=== PATIENT | female | born 1995 | race African-American/Black ===

== ENCOUNTER 2017-11-01 15:46 | Emergency (ER) | payer MEDICAID, OTHER ==
[~2017-11-01] VITALS: Ht 170.2 cm; Wt 85.0 kg
[2017-11-01 15:52] VITALS: BP 124/72; PULSE 75; RESP 18; TEMP 97.7; O2SAT 100
[2017-11-01] MEDS ORDERED: SODIUM CHLOR 0.9% 1000 ML INJ 1,000 ML IV SCH (16:28)
--- NOTE | 2017-11-01 16:45 | PD ---
HPI Chief Complaint: Related Problem Time Seen by Provider: 16:21 Travel History International Travel<30 days: No Contact w/Intl Traveler<30days: No Traveled to known affect area: No History of Present Illness HPI 21-year-old who estimated gestational age 10 weeks based on an ultrasound performed 2 weeks ago at a woman[facility] in [place]. She presents complaining of fatigue. She reports that for the last 1.5 weeks she has had fatigue and nausea. Symptoms are moderate, no aggravating or relieving factors. Denies abdominal pain, vomiting, chest pain, shortness of breath, cough or congestion, vaginal bleeding or discharge, dysuria. 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 No other complaints. PFSH Past Medical History ?: LMP: 08/17/17 Social History Alcohol Use: No Tobacco Use: No Substance Use: No Allergies-Medications (Allergen,Severity, Reaction): Coded Allergies: No Known Allergies (Unverified , 10/31/14) Reported Meds & Prescriptions Reported Meds & Active Scripts Active Diclegis (Doxylamine-Pyridoxine) 10-10 Mg Tab 2 Tab PO AT NIGHT Review of Systems Except as stated in HPI: all other systems reviewed are Neg Physical Exam Narrative GENERAL: Well-developed well-nourished female no acute distress SKIN: Warm and dry. HEAD: Atraumatic. Normocephalic. EYES: Pupils equal and round. No scleral icterus. No injection or drainage. ENT: No nasal bleeding or discharge. Mucous membranes pink and moist. NECK: Trachea midline. No JVD. CARDIOVASCULAR: Regular rate and rhythm. No murmur appreciated. RESPIRATORY: No accessory muscle use. Clear to auscultation. Breath sounds equal bilaterally. GASTROINTESTINAL: Abdomen soft, non-tender, nondistended. Hepatic and splenic margins not palpable. MUSCULOSKELETAL: No obvious deformities. No clubbing. No cyanosis. No edema. NEUROLOGICAL: Awake and alert. No obvious cranial nerve deficits. Motor grossly within normal limits. Normal speech. Data Data Last Documented VS Vital Signs Date Time Temp Pulse Resp B/P (MAP) Pulse Ox O2 Delivery O2 Flow Rate FiO2 11/01/17 15:52 97.7 75 18 124/72 (89) 100 Orders Orders Beta Hcg (Quant/Titer) (11/01/17 16:28) Complete Blood Count With Diff (11/01/17 16:28) Comprehensive Metabolic Panel (11/01/17 16:28) Iv Access Insert/Monitor (11/01/17 16:28) Sodium Chlor 0.9% 1000 Ml Inj (Ns 1000 M (11/01/17 16:28) Thyroid Stimulating Hormone (11/01/17 16:28) Labs Laboratory Tests Test 11/01/17 16:55 White Blood Count 8.7 TH/MM3 Red Blood Count 4.04 MIL/MM3 Hemoglobin 12.9 GM/DL Hematocrit 35.9 % Mean Corpuscular Volume 89.0 FL Mean Corpuscular Hemoglobin 32.1 PG Mean Corpuscular Hemoglobin Concent 36.1 % Red Cell Distribution Width 12.7 % Platelet Count 207 TH/MM3 Mean Platelet Volume 9.2 FL Neutrophils (%) (Auto) 60.4 % Lymphocytes (%) (Auto) 27.7 % Monocytes (%) (Auto) 8.5 % Eosinophils (%) (Auto) 2.9 % Basophils (%) (Auto) 0.5 % Neutrophils # (Auto) 5.2 TH/MM3 Lymphocytes # (Auto) 2.4 TH/MM3 Monocytes # (Auto) 0.7 TH/MM3 Eosinophils # (Auto) 0.3 TH/MM3 Basophils # (Auto) 0.0 TH/MM3 CBC Comment AUTO DIFF Differential Comment AUTO DIFF CONFIRMED Platelet Estimate NORMAL Platelet Morphology Comment NORMAL Spherocytes 1+ Ovalocytes 1+ Blood Urea Nitrogen 7 MG/DL Creatinine 0.61 MG/DL Random Glucose 72 MG/DL Total Protein 7.0 GM/DL Albumin 3.4 GM/DL Calcium Level 8.7 MG/DL Alkaline Phosphatase 36 U/L Aspartate Amino Transf (AST/SGOT) 13 U/L Alanine Aminotransferase (ALT/SGPT) 15 U/L Total Bilirubin 0.3 MG/DL Sodium Level 137 MEQ/L Potassium Level 4.0 MEQ/L Chloride Level 105 MEQ/L Carbon Dioxide Level 23.4 MEQ/L Anion Gap 9 MEQ/L Estimat Glomerular Filtration Rate 147 ML/MIN Thyroid Stimulating Hormone 3rd Gen 1.790 uIU/ML Human Chorionic Gonadotropin, Quant 91562 MIU/ML [facility] Medical Decision Making Medical Screen Exam Complete: Yes Emergency Medical Condition: Yes Medical Record Reviewed: Yes Differential Diagnosis Intrauterine , dehydration, electrolyte abnormality, hypoglycemia Narrative Course The patient appears well. I suspect her fatigue is secondary to early . CBC reveals no acute abnormalities. CMP reveals a glucose of 72, she tolerated oral Gatorade and crackers and popsicles with no difficulties. [place]SH [place] [address]. Bedside ultrasound confirms intrauterine with heart tones of 130. Patient is stable for discharge. She will be given a prescription for diclegis. Diagnosis Primary Impression: Early stage of Additional Impression: Fatigue Additional Instructions: Medication as needed for nausea. Follow-up with [facility]. Return for any emergent medical conditions. Med/Other Pt SpecificInfo: Prescription(s) given Scripts Doxylamine-Pyridoxine (Diclegis) 10-10 Mg Tab 2 TAB PO AT NIGHT, #30 Prov: Diana Vasquez MD 11/01/17 Disposition: 01 DISCHARGE HOME Condition: Stable Дмитрий Juarez November 01, 2017 16:45
[2017-11-01 17:05] LABS: AUTOMATED NEUTROPHIL # 5.2 TH/MM3 (1.8-7.7); BASOPHIL % 0.5 % (0.0-2.0); EOSINOPHIL # 0.3 TH/MM3 (0-0.4); EOSINOPHIL % 2.9 % (0.0-4.0); HEMATOCRIT 35.9 % (35.0-46.0); HEMOGLOBIN 12.9 GM/DL (11.6-15.3); LYMPH % 27.7 % (9.0-44.0); LYMPHOCYTE # 2.4 TH/MM3 (1.0-4.8); MEAN CORPUSCULAR HEMOGLOBIN 32.1 PG (27.0-34.0); MEAN PLATELET VOLUME 9.2 FL (7.0-11.0); MONO % 8.5 % (0.0-8.0); MONOCYTE # 0.7 TH/MM3 (0-0.9); NEUT % 60.4 % (16.0-70.0); PLATELET COUNT 207 TH/MM3 (150-450); RED BLOOD COUNT 4.04 MIL/MM3 (4.00-5.30); RED CELL DISTRIBUTION WIDTH 12.7 % (11.6-17.2); WHITE BLOOD COUNT 8.7 TH/MM3 (4.0-11.0)
[2017-11-01 17:14] LABS: MEAN CORPUSCULAR HGB CONC 36.1 % (32.0-36.0)
[2017-11-01 17:23] LABS: ALBUMIN 3.4 GM/DL (3.4-5.0); AST (GOT) 13 U/L (15-37); BICARBONATE 23.4 MEQ/L (21.0-32.0); BLOOD UREA NITROGEN 7 MG/DL (7-18); CALCIUM 8.7 MG/DL (8.5-10.1); CHLORIDE 105 MEQ/L (98-107); CREATININE 0.61 MG/DL (0.50-1.00); GLOMERULAR FILTRATION RATE 147 ML/MIN (>89); GLUCOSE,RANDOM 72 MG/DL (74-106); SODIUM (NA) 137 MEQ/L (136-145)
[2017-11-01 17:24] LABS: ALT (GPT) 15 U/L (10-53)
[2017-11-01 17:41] LABS: ALKALINE PHOSPHATASE 36 U/L (45-117); TOTAL BILIRUBIN ADULT 0.3 MG/DL (0.2-1.0)
[2017-11-01 18:01] LABS: OVALOCYTES 1+ (NORMAL); SPHEROCYTES 1+ (NORMAL)
[2017-11-01] MEDS ORDERED: DOXY10TA PO (18:14)
== END 2017-11-01 18:31 | disposition home or self-care (01) ==
LOC: NEPA 15:46
DX: O26.811 Pregnancy related exhaustion and fatigue, first trimester (principal); Z3A.10 10 weeks gestation of pregnancy; Z34.91 Encounter for supervision of normal pregnancy, unspecified, first trimester
CPT/HCPCS: 80053; 84443; 84702; 85025; 96360; 99284; J7030